=== PATIENT | female | born 1970 | race African-American/Black ===

== ENCOUNTER 2023-11-19 11:24 | Emergency (ER) | payer OTHER, SELFPAY ==
[2023-11-19 11:32] VITALS: BP 187/97; PULSE 77; RESP 18; TEMP 36.8; O2SAT 99; BMI 27.9
--- NOTE | 2023-11-19 15:36 | ED.ALLEREA ---
HPI - Allergic Reaction General Chief complaint: Allergic Reaction Stated complaint: Allergic reaction bee sting 3days ago Time Seen by Provider: 11/19/23 15:29 Source: patient and RN notes reviewed Mode of arrival: ambulatory Limitations: no limitations History of Present Illness ED Provider: Payal Sanford PA-C HPI narrative: This is a 53-year-old female who presents emergency department with complaints of right hand swelling, redness x2days. Patient states that 2 days ago she was stung by a red wasp on her right hand. She states that she has had increased swelling in her hand despite using Benadryl. She also endorses some numbness and tingling down into her fingers and up into her right arm. No fevers or chills. Initially she felt nauseous after being stung however this has since resolved. Related Data Previous Rx's ?Medication ?Instructions ?Recorded prednisone 20 mg tablet 40 mg (2 x 20 mg) PO DAILY 4 days 11/19/23 #8 tabs Allergies Allergy/AdvReac Type Severity Reaction Status Date / Time latex Allergy Hives Verified 11/19/23 11:34 morphine Allergy Hives Verified 11/19/23 11:34 [facility] Social History Social History Advance Directives: No Advance Directives Information Provided: Yes Do you have a plan to hurt others: No Plan Physical Exam ED Vital Signs: Vital Signs - 24 hr 11/19/23 11:32 11/19/23 16:07 11/19/23 16:26 Temperature 98.3 F 98.3 F Pulse Rate 77 72 Respiratory Rate 18 18 Blood Pressure 187/97 H 168/52 H 168/52 H Pulse Oximetry 99 97 Oxygen Delivery Method Room Air Room Air BMI result Body Mass Index 27.9 Extrem Other: Right hand with moderate edema, and scant and erythema noted, mildly tender to palpation, no warmth. Strong radial pulse. Distal sensation circulation intact. Medications Administered Discontinued Medications Generic Name Dose Route Start Last Admin Trade Name Freq PRN Reason Stop Dose Admin Prednisone 40 mg 11/19/23 15:45 11/19/23 15:52 Prednisone 20 Mg Tablet PO 11/19/23 15:46 40 mg ONCE ONE Administration Medical Decision Making Medical Decision Making [facility] Narrative: This is a 53-year-old female who presents to the emergency department with complaints of right head swelling and redness after being stung by a red wash 3 days ago. She has been taking Benadryl intermittently with minimal relief. On arrival, blood pressure elevated at 187/97, this improved to 168/52. Lungs are clear to auscultation bilaterally. She has no chest pain, dizziness, headaches or changes in vision. I advised patient that she does have high blood pressure and to follow-up with her PCP. Her exam is concerning for allergic reaction secondary to bee sting. This has been several days, will treat patient with prednisone. Does not appear to be infected therefore starting antibiotics is ill advised at this time. Patient understands agrees with plan. Given strict return precautions. Patient stable for discharge. Differential Diagnosis Differential Diagnoses: The differential diagnosis associated with the presentation includes Allergic reaction, anaphylaxis-unlikely, contact dermatitis, cellulitis Discharge Plan Discharge Clinical Impression: Allergic reaction Patient Disposition: Home, Self-Care Instructions: Allergy Testing (ED) Additional Instructions: You were seen in the emergency room due to worsening swelling and redness to your hand after being stung by a red wasp. Please take prescribed prednisone, start this tomorrow as you already received your 1st dose. Keep a close eye on this area, if you develop any new redness, swelling, worsening symptoms, please return for re-evaluation. You develop any difficulty swallowing or chest pain, shortness of breath, please return for re-evaluation. You may continue taking Benadryl as needed. Prescriptions: New prednisone 20 mg tablet 40 mg PO DAILY 4 Days Qty: 8 0RF Interventions: ED Discharge Assessment Last Done: 11/19/23 16:26 Discharge Date/Time: 11/19/23 16:26 Print Language: Vietnamese
[2023-11-19] MEDS: predniSONE 20 MG TABLET 40 MG PO (15:52)
[2023-11-19 16:07] VITALS: BP 168/52
[2023-11-19 16:26] VITALS: BP 168/52; PULSE 72; RESP 18; TEMP 36.8; O2SAT 97
== END 2023-11-19 16:26 | disposition home or self-care (01) ==
PROVIDERS: Emergency Provider Emergency Medicine
DX: R60.0 Localized edema (principal); R20.2 Paresthesia of skin
CPT/HCPCS: 99282; 99283